=== PATIENT | male | born 1965 | race Asian ===

== ENCOUNTER 2017-07-08 14:23 | Emergency (ER) | payer OTHER ==
[~2017-07-08] VITALS: Ht 172.7 cm; Wt 77.4 kg
[~2017-07-08 14:23] MED LIST: IBUP-1050 PO; MECL1TAB42 PO; NOTE:; OMEG10007 PO
[2017-07-08 14:28] VITALS: TEMP 36.7; Ht 172.7 cm; Wt 77.4 kg
[2017-07-08] MEDS ORDERED: ASPIRIN 81 MG CHEW PO STA (14:49)
[2017-07-08] MEDS ORDERED: DOXA-22 PO (15:14)
[2017-07-08] MEDS ORDERED: SIME80CH PO (15:14)
--- NOTE | 2017-07-08 15:16 | DIAGNOSTIC IMAGING REPORT ---
CHEST ONE VIEW PORTABLE CLINICAL HISTORY: Fever and sepsis COMPARISON STUDY: 12/16/2013 FINDINGS: The cardiac and mediastinal contours are normal. There is no evidence of focal pulmonary consolidation. There is no evidence of failure. No pleural effusions are visualized.[ IMPRESSION: No active disease in the chest. Electronically signed by: Silverio John M.D. 07/08/2017 3:15 PM Dictated Date/Time: 07/08/2017 3:15 PM
[2017-07-08 15:17] LABS: BASO % 0.4 %; BASO ABS # 0.02 K/uL (0-0.2); COMPLETE YES; EOS % 1.5 %; HEMATOCRIT 46.2 % (42-52); IG% 0.2 %; LYMPH % 27.2 %; LYMPH ABS # 1.31 K/uL (1.2-3.4); MEAN CELL VOLUME 81.5 fL (80-100); MEAN CORPUSCULAR HEMOGLOBIN 28.4 pg (25-34); MEAN CORPUSCULAR HGB CONC 34.8 g/dl (32-36); MEAN PLATELET VOLUME 9.7 fL (7.4-10.4); MONO % 7.7 %; PLATELET COUNT 187 K/uL (130-400); RED BLOOD COUNT 5.67 M/uL (4.7-6.1); WHITE BLOOD COUNT 4.81 K/uL (4.8-10.8)
[2017-07-08 15:31] LABS: INR 0.9 (0.9-1.1); PARTIAL THROMBOPLASTIN RATIO 1.1; PROTHROMBIN TIME (PATIENT) 10.1 SECONDS (9.0-12.0)
[2017-07-08 16:02] LABS: ALKALINE PHOSPHATASE 72 U/L (45-117); ALT/SGPT 31 U/L (12-78); AST/SGOT 18 U/L (15-37); BLOOD UREA NITROGEN 10 mg/dl (7-18); BUN/CREATININE RATIO 8.3 (10-20); CALCIUM 8.5 mg/dl (8.5-10.1); CARBON DIOXIDE 27 mmol/L (21-32); CHLORIDE 105 mmol/L (98-107); CKMB/CK RATIO 0.5 (0-3.0); GLUCOSE 126 mg/dl (70-99); POTASSIUM 3.8 mmol/L (3.5-5.1); SODIUM 138 mmol/L (136-145); THYROID STIMULATING HORMONE 0.601 uIu/ml (0.300-4.500)
[2017-07-08 16:52] VITALS: BP 123/93; PULSE 78; O2SAT 96
--- NOTE | 2017-07-08 18:31 | EMERGENCY ROOM VISIT NOTE ---
History Report prepared by Shannan: Jean Salazar Under the Supervision of: Rajan OatesO. First contact with patient: 14:44 Chief Complaint: SHORTNESS OF BREATH Stated Complaint: SOB - DISCOMFORT IN CHEST AREA Nursing Triage Summary: triage note: Pt reports intermittent shortness of breath for the past several weeks and today he felt like his heart rate was elevated. pt also reports "discomfort" in mid chest. History of Present Illness The patient is a 51 year old male who presents to the Emergency Room with complaints of constant shortness of breath starting earlier this morning. The patient additionally states that he was having some burning chest pain, high blood pressure, and a high heart rate. The patient states that recently he has been having episodes of shortness of breath and chest pain while walking around , though he states that they do not come while just sitting and relaxing. He additionally states that he has been exercising less, and he has a desk job. The patient denies any history of diabetes, COPD, kidney problems, and asthma. The patient states that he has hypertension which is controlled with medications. He states that there is a family history of high blood pressure and heart attacks at a young age. The patient additionally states that he has been having a lot of stress at work recently. He states that he does not take aspirin, and he took a stress test two years ago which was clear. The patient denies any leg swelling, though he was having some leg pain, and he had some recent long trips to [place]. Source of History: patient Onset: this morning Position: other (global) Quality: other (shortness of breath) Timing: constant Associated Symptoms: + chest pain (burning) Review of Systems See HPI for pertinent positives & negatives. A total of 10 systems reviewed and were otherwise negative. Past Medical & Surgical Medical Problems: (1) HTN (hypertension) Family History FHx: heart disease Social History Smoking Status: Never Smoker Marital Status: Occupation Status: employed Current/Historical Medications Scheduled Doxazosin Mesylate (Doxazosin), 4 MG PO DAILY Simethicone (Gas-X), 1 TAB PO PRN Allergies Coded Allergies: No Known Allergies (Unverified , 12/16/13) Physical Exam Vital Signs Date Time Temp Pulse Resp B/P (MAP) Pulse Ox O2 Delivery O2 Flow Rate FiO2 07/08/17 16:52 78 18 123/93 96 Room Air 07/08/17 15:29 67 16 132/90 96 Room Air 07/08/17 14:35 82 07/08/17 14:35 80 20 151/96 95 Room Air 07/08/17 14:28 36.7 101 20 164/101 94 Room Air Physical Exam CONSTITUTIONAL/VITAL SIGNS: Reviewed / noted above. GENERAL: Non-toxic in appearance. INTEGUMENTARY: Warm, dry, and [place]. HEAD: Normocephalic. EYES: without scleral icterus or trauma. ENT/OROPHARYNX: clear and moist. LYMPHADENOPATHY/NECK: Is supple without lymphadenopathy or meningismus. RESPIRATORY: Lungs clear and equal. CARDIOVASCULAR: Regular rate and rhythm. GI/ABDOMEN: Soft and nontender. No organomegaly or pulsatile mass. No rebound or guarding. Normal bowel sounds. EXTREMITIES: Warm and well perfused. BACK: No CVA tenderness. NEUROLOGICAL: Intact without focal deficits. PSYCHIATRIC: normal affect. MUSCULOSKELETAL: Normally developed with good muscle tone. Medical Decision & Procedures ER Provider Diagnostic Interpretation: Radiology results as stated below per my review and radiologist interpretation: CHEST ONE VIEW PORTABLE CLINICAL HISTORY: Fever and sepsis COMPARISON STUDY: 12/16/2013 FINDINGS: The cardiac and mediastinal contours are normal. There is no evidence of focal pulmonary consolidation. There is no evidence of failure. No pleural effusions are visualized.[ IMPRESSION: No active disease in the chest. Electronically signed by: Silverio John M.D. 07/08/2017 3:15 PM Dictated Date/Time: 07/08/2017 3:15 PM Laboratory Results 07/08/17 15:05 Red Blood Count 5.67, Mean Corpuscular Volume 81.5, Mean Corpuscular Hemoglobin 28.4, Mean Corpuscular Hemoglobin Concent 34.8, Mean Platelet Volume 9.7, Neutrophils (%) (Auto) 63.0, Lymphocytes (%) (Auto) 27.2, Monocytes (%) (Auto) 7.7, Eosinophils (%) (Auto) 1.5, Basophils (%) (Auto) 0.4, Neutrophils # (Auto) 3.03, Lymphocytes # (Auto) 1.31, Monocytes # (Auto) 0.37, Eosinophils # (Auto) 0.07, Basophils # (Auto) 0.02 07/08/17 15:05 Test 8/15/17 15:05 White Blood Count 4.81 K/uL (4.8-10.8) Red Blood Count 5.67 M/uL (4.7-6.1) Hemoglobin 16.1 g/dL (14.0-18.0) Hematocrit 46.2 % (42-52) Mean Corpuscular Volume 81.5 fL (80-100) Mean Corpuscular Hemoglobin 28.4 pg (25-34) Mean Corpuscular Hemoglobin Concent 34.8 g/dl (32-36) Platelet Count 187 K/uL (130-400) Mean Platelet Volume 9.7 fL (7.4-10.4) Neutrophils (%) (Auto) 63.0 % Lymphocytes (%) (Auto) 27.2 % Monocytes (%) (Auto) 7.7 % Eosinophils (%) (Auto) 1.5 % Basophils (%) (Auto) 0.4 % Neutrophils # (Auto) 3.03 K/uL (1.4-6.5) Lymphocytes # (Auto) 1.31 K/uL (1.2-3.4) Monocytes # (Auto) 0.37 K/uL (0.11-0.59) Eosinophils # (Auto) 0.07 K/uL (0-0.5) Basophils # (Auto) 0.02 K/uL (0-0.2) RDW Standard Deviation 37.7 fL (36.4-46.3) RDW Coefficient of Variation 12.7 % (11.5-14.5) Immature Granulocyte % (Auto) 0.2 % Immature Granulocyte # (Auto) 0.01 K/uL (0.00-0.02) Prothrombin Time 10.1 SECONDS (9.0-12.0) Prothromb Time International Ratio 0.9 (0.9-1.1) Activated Partial Thromboplast Time 29.2 SECONDS (21.0-31.0) Partial Thromboplastin Ratio 1.1 D-Dimer 350 ug/L FEU (0-500) Anion Gap 6.0 mmol/L (3-11) Est Creatinine Clear Calc Drug Dose 68.9 ml/min Estimated GFR () 79.5 Estimated GFR (Non- 68.6 BUN/Creatinine Ratio 8.3 (10-20) Calcium Level 8.5 mg/dl (8.5-10.1) Total Bilirubin 0.6 mg/dl (0.2-1) Direct Bilirubin mg/dl (0-0.2) Aspartate Amino Transf (AST/SGOT) 18 U/L (15-37) Alanine Aminotransferase (ALT/SGPT) 31 U/L (12-78) Alkaline Phosphatase 72 U/L (45-117) Total Creatine Kinase 174 U/L (39-308) Creatine Kinase MB 0.8 ng/ml (0.5-3.6) Creatine Kinase MB Ratio 0.5 (0-3.0) Troponin I < 0.015 ng/ml (0-0.045) Total Protein 7.2 gm/dl (6.4-8.2) Albumin 3.7 gm/dl (3.4-5.0) Lipase 141 U/L (73-393) Thyroid Stimulating Hormone (TSH) 0.601 uIu/ml (0.300-4.500) Chemistry Specimen Hemolysis Laboratory results as stated above per my review. Medications Administered Medications (Trade) Dose Ordered Sig/Kala Route Start Time Stop Time Status Last Admin Dose Admin Aspirin (Aspirin Chew) 324 mg NOW STAT PO 07/08/17 14:49 07/08/17 14:53 DC 07/08/17 15:28 324 MG ECG Indication: SOB/dyspnea Rate (beats per minute): 78 Rhythm: normal sinus Findings: no ectopy, other (No acute injury) ED Course 1444: Previous medical records were reviewed. The patient was evaluated in room A9. A complete history and physical examination was performed. 1446: Aspirin 324mg PO 1635: On reevaluation, the patient is feeling well. I discussed the results and findings with the patient. He verbalized agreement of the treatment plan. He was discharged home. Medical Decision the differential was considered includes acute myocardial infarction, acute coronary syndrome, myocarditis, pericarditis, pericardial effusions /tamponade, esophageal perforation, thoracic aortic dissection, pulmonary embolism, pneumonia, pneumothorax, pancreatitis, shingles, acute cholecystitis, perforated abdominal viscus. This is a 51-year-old male who presents to the ED with a chief complaint of shortness of breath. The patient states that he awoke feeling short of breath. He also reports a little burning in his chest which resolved after taking some Gas-X. The patient states that he took his blood pressure this morning and his heart rate was 115. He states that he has had a few episodes similar to this with some chest pressure as well as dyspnea associated with walking recently. He denies any recent illness, fevers or cough. He currently denies any chest pains or shortness of breath. He reports that his father had an GA in his 50s. He is currently taking Cardura for hypertension. The patient has a normal exam. Initial blood pressure was elevated but this improved during his stay. His EKG shows a normal sinus rhythm. No acute injury or ectopy. CBC was normal, d-dimer was negative, complete metabolic panel was normal, troponin is negative, TSH was normal and a chest x-ray did not show acute disease. The patient was told results the test. He was treated with some aspirin by mouth. He was advised to take aspirin daily. He was offered observation. The patient decided to follow-up as an outpatient. I did recommend cardiology outpatient follow-up with stress test in the near future. He was also advised to return to the emergency department should he develop any new or worsening symptoms and to avoid exertion until his cardiology follow-up. He was also advised to take aspirin daily. Medication Reconcilliation Current Medication List: was personally reviewed by me Blood Pressure Screening Patient's blood pressure: Elevated blood pressure Blood pressure disposition: Elevated BP felt to be situational Impression Primary Impression: Dyspnea Additional Impression: Chest pain Scribe Attestation The scribe's documentation has been prepared under my direction and personally reviewed by me in its entirety. I confirm that the note above accurately reflects all work, treatment, procedures, and medical decision making performed by me. Departure Information Dispostion Home / Self-Care Referrals Heron Kraft D.O. (PCP) Librado Barrett D.O. Forms HOME CARE DOCUMENTATION FORM, IMPORTANT VISIT INFORMATION Patient Instructions My [facility] [employer] Additional Instructions Your test results today did not reveal any significant abnormalities. Based on your family history as well as your history of hypertension and your symptoms, I do recommend stress testing and cardiology follow-up. Dr. Elias is listed for cardiology referral for the [employer] [facility]. Call his office tomorrow for follow-up. Advise them that you were seen in the emergency department. Avoid any exertion until seen by cardiology and stress testing is done. Take a full aspirin daily. Return to the emergency department for any chest discomfort, shortness of breath , sweating or symptoms that you feel might be related to a heart attack. Problem Qualifiers
== END 2017-07-08 17:20 | disposition home or self-care (01) ==
LOC: C.EDB 14:24 → C.EDA 17:20
DX: R06.00 Dyspnea, unspecified (principal); R07.9 Chest pain, unspecified; I10 Essential (primary) hypertension; Z79.899 Other long term (current) drug therapy; Z82.49 Family history of ischemic heart disease and other diseases of the circulatory system

== ENCOUNTER 2022-12-13 10:24 | Observation (INO) ==
[2022-12-13] MEDS ORDERED: ATROPINE SULFATE 0.1 MG/ML 10ML SYR IV ONE (10:25)
[2022-12-13] MEDS ORDERED: MIDAZOLAM HCL 1 MG/ML 2ML VIAL ONE ×2 (11:36→13:20)
[2022-12-13] MEDS ORDERED: HEPARIN (PORCINE) 1000 UNIT/ML 10 ML (CATH LAB USE ONLY) ONE (11:36)
[2022-12-13] MEDS ORDERED: fentaNYL citrate 100 MCG/2 ML VIAL ONE (11:37)
[2022-12-13] MEDS ORDERED: NITROGLYCERIN/D5W 100MCG/ML 20ML SYR ONE (11:37)
[2022-12-13] MEDS ORDERED: niCARdipine HCL INJ 2.5 MG/ML 10 ML AMP ONE (11:37)
--- NOTE | 2022-12-13 11:51 | History & Physical Bridge Note ---
Date of Service December 13, 2022 History & Physical Bridge Note I have examined the patient, reviewed the History & Physical and in the interval since the performance of the History & Physical I have noted the following changes of clinical significance: no changes noted
--- NOTE | 2022-12-13 11:51 | Pre Anesthesia Assessment ---
Date of Service December 13, 2022 Pre Sedation Assessment Vital Signs Pulse Resp BP Pulse Ox O2 Del Method 12/13/22 10:35 71 17 126/87 98 Room Air Cardiovascular RRR, no murmur, no edema Respiratory normal respiratory effort, lungs clear to auscultation Pre-Sedation Airway Assessment Smoking Status: Never smoker Hx Sleep Apnea: No Hx Difficult Intubation: No Short, Thick Neck: No Thyromental Distance: > or= 3.5 Finger Breadths Oral Cavity: + WNL Mallampati Class: III ASA: ASA2 NPO Status Date of Last Intake of Fluids: 12/13/22 Time of Last Intake of Fluids: 08:00 Last Oral Intake of Fluids Comment: sip with meds Date of Last Intake of Solid Food: 12/12/22 Procedure Planning Contraindications for Sedation: none Current Medications Reviewed: Yes Notes The planned sedation has been discussed with the patient. Informed Consent was obtained. I have identified the patient, determined the appropriateness of sedation and have assessed the patient immediately prior to the procedure. All medicine(s) and interventions are by my order.
[2022-12-13] MEDS ORDERED: CLOPIDOGREL BISULFATE 300 MG TAB ONE (13:45)
--- NOTE | 2022-12-13 14:01 | Post Anesthesia Assessment ---
Date of Service December 13, 2022 Post Sedation Assessment Vital Signs Pulse Resp BP Pulse Ox O2 Del Method 12/13/22 10:35 71 17 126/87 98 Room Air Recovery Score Activity: Moves 4 extremities Respiration: Deep Breath/Cough Circulation: +/-20% PreAnes Value Consciousness: Fully Awake Discharge Sedation Level of Care: Fast Track Phase II Post Sedation Plan On clinical assessment, the patient appears to have tolerated the sedation without complications. Patient is recovering as anticipated. Patient will continue to be monitored by nursing and may be discharged when sedation discharge criteria are met per below protocol. Upon Completions of procedure up to 15 minutes continue every 5 minute vital signs and the P.A.R. score; then discharge to a Phase I or Fast Track to Phase II per the following guidelines: * Discharge Patient to appropriate Phase II area if PAR is 8 or greater or return to pre- procedure baseline. The post - procedure orders will be as directed. * If PAR score is less than 8 or not return to pre-procedure baseline then patient will follow Phase I monitoring till PAR is reached for Phase II. The Phase I may be done in procedure room or may call to secure a Phase I area. * If naloxone or flumazenil are used for reversal, hold in Phase I for continued monitoring from when last reversal dose was given for a minimum of 60 minutes or longer pending the nurse and/or physician discretion of patient condition before discharge to Phase II. Please call the Sedation Physician to re-evaluate and complete post-note for discharge to Phase II area. Do NOT discharge from procedure sedation or Phase 1 until post- sedation evaluation note is complete by procedure /sedation MD Sedation Discharge Instructions to be given to the patient at discharge to home.
--- NOTE | 2022-12-13 16:34 | Electrocardiogram Report ---
Test Reason : Blood Pressure : / mmHG Vent. Rate : 062 BPM Atrial Rate : 062 BPM P-R Int : 132 ms QRS Dur : 086 ms QT Int : 410 ms P-R-T Axes : 050 -46 018 degrees QTc Int : 416 ms Normal sinus rhythm Left axis deviation Abnormal ECG When compared with ECG of 08-JUL-2017 14:32, No significant change was found Confirmed by Ernesto Brooks ([id number]) on 12/13/2022 4:33:40 PM Referred By: Carlos Montilla Confirmed By:Ernesto Brooks
[2022-12-13] MEDS ORDERED: ATROPINE SULFATE 0.1 MG/ML 10ML SYR IV PRN (18:33)
[2022-12-13] MEDS ORDERED: NITROGLYCERIN SL 0.4 MG/TAB TAB SL PRN (18:33)
[2022-12-13] MEDS ORDERED: ACETAMINOPHEN 325 MG TAB PO PRN (18:33)
[2022-12-13] MEDS ORDERED: ONDANSETRON INJ 2 MG/ML 2 ML VIAL IV PRN (18:33)
[2022-12-13] MEDS ORDERED: SODIUM CHLORIDE 0.9% 1000ML 1,000 ML IV SCH (18:45)
--- NOTE | 2022-12-14 00:34 | Cardiac Catheterization ---
[facility] Data: Director Of Healthcare Systems Cardiac Status Clinical evaluation leading to the procedure CAD Presenation: Positive Stress Test Anginal Classification: CCS III Diagnostic Physicians Name: Alan Alcocer MD Closure Device Recommendations: PCI without planned CABG Cardiac Cath Procedure Full Procedure Date December 13, 2022 Pre-Procedure Diagnosis Pre-Procedure Diagnosis: Positive Stress Test AUC Score AUC Score: 7 Post-Procedure Diagnosis Post-Procedure Diagnosis: Severe CAD, Successful PCI and Normal Intracardiac Pressures Procedure(s) Performed Procedure(s) Performed: Coronary Angiography, Left Heart Cath and Drug Eluting Stent Fur Finisher Tailor Alan Alcocer MD Hydrostatic Tubing Tester(s) Doyleibler Estimated Blood Loss Estimated Blood Loss: 15 Medication(s) Medication(s): Clopidogrel, Fentanyl, Heparin, Lidocaine 1%, Nicardipine, Nitroglycerin and Versed Summary of Findings Indication: Accelerating angina, high risk abnormal stress test Access: 6 Fr right radial artery Catheters: [place], JR4 guide Findings: LM -normal caliber, no significant disease LAD -medium caliber, midsegment luminal irregularities, distal vessel wraps around apex. Gives off medium bifurcating D1. Circumflex -medium caliber, proximal to mid vessel without significant disease. Small distal AV groove circumflex with mild diffuse disease. Gives off Small to medium OM1 with diffuse proximal disease up to 95+%. RCA -dominant, medium caliber, 98% distal stenosis involving bifurcation of PDA. Right PAV with 80% proximal stenosis. PDA/PLB with sluggish flow and partially fill via [id number] collaterals. LVEDP -8 -- PCI -- Antithrombotic therapy: Heparin, clopidogrel Procedure: RCA cannulated with JR4 guide Pre-procedure flow MADALYN 2 Financial Sales Advisor 50 wire passed across lesion into distal RPDA With wiring of PDA flow lost and posterior AV branch. Unable to initially wire with whisper wire. Angioplasty of distal RCA into PDA with 2.5 balloon with improved flow in PDA and PAV Able to pass whisper wire into PAV branch and distal PLB Proximal PAV dilated with 2.0 balloon Distal RCA into PDA stented with 3.0 x 30 mm Ross drug-eluting stent RPAV rewired through stent struts with sdv pilot/navigator/dds operator 50 wire Stent struts/ostial PAV dilated with 2.0 balloon Ostial/proximal RPAV stented with 2.25 x 12 mm [place] in T formation RCA into PDA stent postdilated with 3.25 NC balloon Kissing balloon inflation of bifurcation with 3.25 NC into PDA and 2.5 balloon into RPAV IC vasodilators administered for spasm Post procedure MADALYN 3 flow, stents well expanded with minimal residual stenosis and no apparent cardiac complications. Arterial Closure: TR band Summary: 1. Severe multivessel coronary artery disease -98% distal RCA stenosis at bifurcation extending into PDA/R-PAV branches with MADALYN II flow and faint [id number] collaterals 95+% proximal small to medium OM1 2. Normal intracardiac filling pressure 3. Successful PCI of distal RCA at bifurcation of PDA/RPAV with 2 drug-eluting stents (3.0 x 30 mm [place] into PDA; 2.25 x 12 mm [place] into PAV). Recommendations: To PCU for continued monitoring Loaded with clopidogrel 600 mg in Director Of Healthcare Systems Continue dual-antiplatelet therapy for at least 6 months, consider extended DAPT in the setting of bifurcation stenting Continue statin, and ASCVD risk factor modification Consult cardiac Rehab Consider staged PCI of OM1 Hemodynamics Rest Ao:: 87/60 Final Ao: 83/58/60 LV: 83/8 Recommendations Recommendations: PCI without planned CABG Specimens Specimens: None Radiation Exposure (mGy) 3718 Contrast (mls) 125 Anesthesia Moderate 4731-9990 Procedural Complication(s) None Disposition PCU I attest to the content of the Intraoperative Record and any orders documented therein. Any exceptions are noted below. [facility] Card Cath Procedure Codes Cardiac Catheterization Procedure 1: Cardiovascular Cath Procedures: 02138 Coronaries and LHC (+/-LV) Moderate Sedation Procedure 1: Sedation/Anesthesia: 97583 Mod Sedation by the same physician;Init15 Min Child Age 5 & Up Procedure 2: Sedation/Anesthesia: 87040 Mod Sedation by the same physician; Ea [id number] Minutes Stenting Procedure 1: Cardiovascular Stent Procedures: 65210 Perc transcatheter placement of intracoronary stent(s), with ang PG Care Time/CCT Total # of Minutes Spent Total Time Spent with Patient: Total time spent is greater than 50% in coordination of care (as documented) at patient's floor/unit and/or counseling patient:
[2022-12-14] MEDS ORDERED: CLOPIDOGREL BISULFATE 75 MG TAB PO SCH (09:00)
[2022-12-14] MEDS ORDERED: ASPIRIN 81 MG ECTAB PO SCH (09:00)
[2022-12-14] MEDS ORDERED: ATORVASTATIN 40 MG TAB PO SCH (09:00)
[2022-12-14] MEDS ORDERED: PANTOprazole 40 MG TAB PO SCH (09:00)
--- NOTE | 2022-12-14 14:59 | Electrocardiogram Report ---
Test Reason : Blood Pressure : / mmHG Vent. Rate : 082 BPM Atrial Rate : 082 BPM P-R Int : 138 ms QRS Dur : 094 ms QT Int : 384 ms P-R-T Axes : 063 -57 042 degrees QTc Int : 448 ms Normal sinus rhythm Left anterior fascicular block Nonspecific ST abnormality Abnormal ECG When compared with ECG of 13-DEC-2022 14:01, No significant change was found Confirmed by Elias Roy ([id number]) on 12/14/2022 2:58:49 PM Referred By: Carlos Montilla Confirmed By:Elias Roy
--- NOTE | 2022-12-14 15:04 | Electrocardiogram Report ---
Test Reason : Blood Pressure : / mmHG Vent. Rate : 072 BPM Atrial Rate : 072 BPM P-R Int : 136 ms QRS Dur : 082 ms QT Int : 366 ms P-R-T Axes : 077 -16 -51 degrees QTc Int : 400 ms Normal sinus rhythm Low voltage QRS Possible Lateral infarct , age undetermined St and T changes consider inferolateral ischemia Abnormal ECG When compared with ECG of 13-DEC-2022 18:48, (unconfirmed) QRS axis Shifted right Non-specific change in ST segment in Lateral leads St/T changes are present QT has shortened Consider repeating the EKG given the subtle ST elevation in 1 and AVL to r/o progressive changes Confirmed by Elias Roy ([id number]) on 12/14/2022 3:04:27 PM Referred By: Carlos Montilla Confirmed By:Elias Roy
--- NOTE | 2022-12-19 08:06 | Discharge Summary ---
Date of Service December 19, 2022 Admission HPI Per Admitting Provider Mr. Elen burgos 57-year-old man referred for cardiac catheterization. Patient with 4 months of 4 months of accelerating angina. Had high risk abnormal stress test with Dr. Roladn Chacon. Discharge Data Procedures Performed Operation Date: 12/13/22 11:00 Actual Procedures p Cineradiography w/Routine Exam - Khoa Alcocer MD p Cath, Left with Cors and Vent - Khoa Alcocer MD s Drug Eluting Stent SGl Vessel - Khoa Alcocer MD Hospital Course (1) CAD (coronary artery disease): Plan Patient underwent cardiac catheterization which revealed: 1. Severe multivessel coronary artery disease -98% distal RCA stenosis at bifurcation extending into PDA/R-PAV branches with MADALYN II flow and faint loaz-cr-vaitg collaterals 95+% proximal small to medium OM1 2. Normal intracardiac filling pressure 3. Successful PCI of distal RCA at bifurcation of PDA/RPAV with 2 drug-eluting stents (3.0 x 30 mm Ross into PDA; 2.25 x 12 mm [place] into PAV). Following PCI patient was observed in Pattern Wheel Maker holding area. Patient doing well and was to be discharged. While standing waiting for his to go get the car patient started feeling dizzy, nauseated and after sitting down had a syncopal episode. Quickly regained consciousness and felt back at baseline. No associated chest pain or EKG changes. He endorsed other prior presyncopal events in the setting of medical care and event was thought to be vasovagal. He was admitted for observation post event. On telemetry he had no arrhythmias. Continued to feel well overnight into the morning. Following day no chest pain, no access complications. He was discharged home on DAPT with aspirin, clopidogrel. Plan to follow-up with [facility] cardiology in 1 to 2 weeks. Further discussion of of possible staged PCI of OM with Dr. Montilla. Discharge Instructions Home Medications Doxazosin Mesylate (Doxazosin) 4 mg PO DAILY ##0 07/08/17 [History Confirmed 12/13/22] SIMETHICONE (GAS-X) 1 tab PO PRN Gas or Constipation ##0 07/08/17 [History] tadalafil 5 mg tablet 5 mg PO DAILY PRN Erectile Dysfunction 12/13/22 [History Confirmed 12/13/22] aspirin 81 mg tablet,delayed release 81 mg PO QAM #30 tabs 12/14/22 [Rx] atorvastatin 40 mg tablet 80 mg PO QAM #30 tabs 12/14/22 [Rx] clopidogrel 75 mg tablet 75 mg PO QAM #30 tabs 12/14/22 [Rx] Coding Level of Care Code HOSP INP/OBS DISCH 30 MIN/LESS Diagnoses CAD (coronary artery disease) I25.10
== END 2022-12-14 11:10 | disposition home or self-care (01) ==
LOC: EP 10:24 → 4W 10:24
DX: R94.39 Abnormal result of other cardiovascular function study; Z79.899 Other long term (current) drug therapy; I10 Essential (primary) hypertension; I25.10 Atherosclerotic heart disease of native coronary artery without angina pectoris; E78.5 Hyperlipidemia, unspecified